=== PATIENT | male | born 1965 | race Two or more races ===

== ENCOUNTER 2017-03-25 12:37 | Emergency (ER) | payer MEDICAID ==
[2017-03-25 13:06] VITALS: BP 129/81; PULSE 100; RESP 20; O2SAT 98
[2017-03-25 14:32] LABS: BASOPHILS % (AUTO) 0.4 % (0-3); EOSINOPHILS % (AUTO) 1.6 % (0-5); Mean Corpuscular Hemoglobin 32.3 pg (27.0-35.0); Mean Corpuscular Volume 93.7 fL (81-100); NEUTROPHILS % (AUTO) 72.7 % (40-74); Platelet Count 323 bil/L (150-400)
[2017-03-25 18:54] VITALS: BP 97/51; PULSE 76; RESP 16; O2SAT 95
--- NOTE | 2017-03-25 20:53 | ED.REPORT ---
HPI-Psychiatric Illness Date of Service Mar 25, 2017 ED Provider: Luan Tidwell History of Present Illness: 51yo male brought in by police for erratic behavior and concern for self harm. Police report Pt. was trying to provoke "suicide by flight engineer helicopter" at scene. Pt. is agitated and reluctant to communicate kettle firer aided some history taking. Nursing Notes Stated Complaint: PSYCH Chief Complaint: Psychiatric Complaint Nursing Notes Reviewed: Yes Allergies: Coded Allergies: No Known Allergies (Unverified , 03/25/17) General Time Seen by MD: 13:18 Chief Complaint Bizarre behavior Hx Obtained From: Police Arrived By: Police Onset Occurred: Onset unknown Context of Onset: Intoxicated, illicit drug Symptom Duration: Since onset Associated with: Reports: Psychosis Risk-Psychiatric Illness Suicide Risk Stratification Suicide Risk Factors - Adult: : Substance abuse RF Statements: Risk factors reviewed Past Medical History Past Medical History unable to assess due to psychosis Ambulatory Status Independent Review of Systems Unable to Obtain ROS Patient condition, Mental status Physical Exam Initial Vital Signs Vital Signs (First) Date Time Temp Pulse Resp B/P Pulse Ox O2 Delivery O2 Flow Rate FiO2 03/25/17 13:06 36.3 100 20 129/81 98 Room Air Initial VS: Reviewed General/Constitutional: Awake, Not toxic appearing Behavior: Positive: Aggressive, Appears intoxicated Appearance / Presentation: Positive: Hygiene poor Abnormal Thinking / Perception: Positive: Confused, Insight abnormal, Judgment abnormal, Tangential thinking Respiratory / Chest: Breath sounds NL, Breath sounds = bilat, No respiratory distress Cardiovascular: Heart rate NL, Regular rhythm, Heart sounds NL Neck: Supple Interpretation & Diagnostics Interpretation & Diagnostics: Urine tox screen = positive for meth and cocaine Alcohol breathalizer = 0.0 Lab Results Interpretation Result Diagram: 03/25/17 1428 03/25/17 1428 Test 03/25/17 13:50 03/25/17 14:28 Hold Urine Received (Received) White Blood Count 13.6th/mm3 (3.8-10.1) Red Blood Count 4.61mil/mm3 (4.40-5.80) Hemoglobin 14.9g/dL (13.8-17.2) Hematocrit 43.2% (41.0-50.0) Mean Corpuscular Volume 93.7fL (81-100) Mean Corpuscular Hemoglobin 32.3pg (27.0-35.0) Mean Corpuscular Hemoglobin Concent 34.5% (32.0-37.0) Red Cell Distribution Width 13.1% (12.3-15.4) Platelet Count 323bil/L (150-400) Neutrophils (%) (Auto) 72.7% (40-74) Lymphocytes (%) (Auto) 18.1% (14-46) Monocytes (%) (Auto) 7.0% (4-12) Eosinophils (%) (Auto) 1.6% (0-5) Basophils (%) (Auto) 0.4% (0-3) Sodium Level 137mEq/L (134-144) Potassium Level 4.7mEq/L (3.5-5.2) Chloride Level 101mEq/L (97-108) Carbon Dioxide Level 24mmol/L (18-29) Blood Urea Nitrogen 15mg/dL (6-24) Creatinine 0.98mg/dL (0.76-1.27) Estimat Glomerular Filtration Rate 86mL/min (>59) Glucose Level 99mg/dL (60-99) Calcium Level 9.3mg/dL (8.5-10.1) Total Bilirubin 0.2mg/dL (0.0-1.2) Aspartate Amino Transf (AST/SGOT) 22U/L (0-50) Alanine Aminotransferase (ALT/SGPT) 15U/L (0-44) Alkaline Phosphatase 114U/L (25-150) Total Creatine Kinase 334U/L (21-232) Total Protein 7.0g/dL (6.4-8.4) Albumin 4.3g/dL (3.4-5.0) Hold Mag[place]anes Top Tube Received (Received) Re-Eval/Medical Decision Med Decision/Clinical Course Pt. seen by CALL CENTER COORDINATOR who advised sleeping off intoxication through night and reassess in AM of 03/26. Discharge & Departure Shift Change Sign-Out Patient Care Transferred: Yes Discussed Complaint(s): Yes Laboratory Evaluation: Back, reviewed by me Additonal Information: Pt. care transferred to Dr. Pinto at shift change pending metabolism of meth and possible CALL CENTER COORDINATOR input tomorrow in AM. Impression: Primary Impression: Substance abuse Additional Impression: Acute situational disturbance EDSupervising Provider for APC: Luan Pinto MD, [facility] Mar 25, 2017 20:53
[2017-03-25 21:17] VITALS: BP 106/62; PULSE 80; RESP 17; O2SAT 98
[2017-03-26 01:21] VITALS: BP 113/68; PULSE 79; RESP 17; O2SAT 99
[2017-03-26 05:28] VITALS: BP 107/63; PULSE 70; RESP 16; O2SAT 100
[2017-03-26 10:06] VITALS: BP 102/57; PULSE 72; RESP 16; O2SAT 98
[2017-03-26 13:48] VITALS: BP 110/67; PULSE 72; RESP 16; O2SAT 98
== END 2017-03-26 13:49 | disposition home or self-care (01) ==
LOC: SED 12:37
DX: F19.10 Other psychoactive substance abuse, uncomplicated (principal); F43.0 Acute stress reaction; R45.1 Restlessness and agitation